=== PATIENT | female | born 1995 | race Caucasian/White ===

== ENCOUNTER 2021-06-18 12:32 | Emergency (ER) | payer OTHER ==
[~2021-06-18] VITALS: Ht 172.7 cm; Wt 126.4 kg
[2021-06-18] MEDS ORDERED: ASPIRIN 325 MG TABLET PO ONE (13:30)
[2021-06-18] MEDS ORDERED: IV NORMAL SALINE 1000ML BAG 1,000 ML IV SCH (13:30)
[2021-06-18] MEDS ORDERED: ACETAMINOPHEN 500 MG TABLET PO ONE (13:30)
--- NOTE | 2021-06-18 13:35 | PHYS DOC ---
Past Medical History Additional Past Medical Histor: history of syncopal episodes since childhood (EDGAR DUTTA NIGHT COORDINATOR) Past Surgical History: No Surgical History (EDGAR DUTTA NIGHT COORDINATOR) Smoking Status: Never Smoker Alcohol Use: Occasionally Social History Narrative: occasionally I do THC (EDGAR DUTTA NIGHT COORDINATOR) General Adult EDM: Chief Complaint: FLU SYMPTOM HPI: HPI: Patient is a 26 year old Female who presents with states since yesterday she is been having syncopal episodes which is not unusual for her as she has pots disease and she lays down and puts her feet up for a while and it usually gets better. She states that she does not feel like it is getting better. She also started with bilateral leg pain that starts at the back of her legs and radiates down, fever and chest pain especially with taking a deep breath that all started yesterday. She states the pain is sharp. She denies any current injury. She does have a gem cutter which she sees every 6 months and states that she does not take medications for her pots disease. She does take medication for hypothyroidism. She is not vaccinated for Covid. She states occasionally she does do CBD and THC and is weaning off breast-feeding. Rates her pain a 7 out of 10 this time. (EDGAR DUTTA NIGHT COORDINATOR) Review of Systems: Review of Systems: Constitutional: + fever or +chills. [] Eyes: Denies change in visual acuity. [] HENT: Denies nasal congestion or sore throat. [] Respiratory: Denies cough or shortness of breath. [] Cardiovascular: + chest pain or edema. [] GI: Denies abdominal pain, nausea, vomiting, bloody stools or diarrhea. [] : Denies dysuria. [] Musculoskeletal: Denies back pain or joint pain. + Bilateral lower leg pain [] Integument: Denies rash. [] Neurologic: Denies headache, focal weakness or sensory changes. [] Endocrine: Denies polyuria or polydipsia. [] Lymphatic: Denies swollen glands. [] Psychiatric: Denies depression or anxiety. [] (EDGAR DUTTA NIGHT COORDINATOR) Heart Score: C/O Chest Pain: Yes HEART Score for Chest Pain: HEART Score for Chest Pain Response (Comments) Value History Slighlty/Non-Suspicious 0 ECG Normal 0 Age < 45 0 Risk Factors 1 or 2 Risk Factors 1 Troponin < Normal Limit 0 Total 1 Risk Factors: Risk Factors: DM, Current or recent (<one month) smoker, HTN, HLP, family history of CAD, obesity. Risk Scores: Score 0 - 3: 2.5% MACE over next 6 weeks - Discharge Home Score 4 - 6: 20.3% MACE over next 6 weeks - Admit for Clinical Observation Score 7 - 10: 72.7% MACE over next 6 weeks - Early Invasive Strategies (EDGAR DUTTA APRN) Current Medications: Current Medications Medications (Trade) Dose Ordered Sig/Danielle Start Time Stop Time Status Last Admin Dose Admin Acetaminophen (Tylenol) 1,000 mg 1X ONCE 06/18/21 13:30 06/18/21 13:31 Aspirin (Srikanth Aspirin) 325 mg 1X ONCE 06/18/21 13:30 06/18/21 13:31 Sodium Chloride 1,000 ml @ 1,000 mls/hr Q1H 06/18/21 13:30 06/18/21 14:29 (EDGAR DUTTA APRN) Allergies: Allergies: Allergies Coded Allergies Type Severity Reaction Last Updated Verified cinnamon Allergy Intermediate Unknown 06/18/21 Yes escitalopram Allergy Intermediate Unknown 06/18/21 Yes (EDGAR DUTTA APRN) Physical Exam: PE: Constitutional: Well developed, well nourished, no acute distress, non-toxic appearance. Febrile [] HENT: Normocephalic, atraumatic, bilateral external ears normal, oropharynx m oist, no oral exudates, nose normal. [] Eyes: PERRLA, EOMI, conjunctiva normal, no discharge. [] Neck: Normal range of motion, no tenderness, supple, no stridor. [] Cardiovascular:Heart rate regular rhythm, no murmur [] Lungs & Thorax: Bilateral breath sounds clear to auscultation [] Abdomen: Bowel sounds normal, soft, no tenderness, no masses, no pulsatile masses. [] Skin: Warm, dry, no erythema, no rash. [] Back: No tenderness, no CVA tenderness. [] Extremities: No tenderness, no cyanosis, no clubbing, ROM intact, no edema. [] Neurologic: Alert and oriented X 3, normal motor function, normal sensory function, no focal deficits noted. [] Psychologic: Affect normal, judgement normal, mood normal. [] (EDGAR DUTTA APRN) Current Patient Data: Vital Signs: Vital Signs Date Time Temp Pulse Resp B/P (MAP) Pulse Ox O2 Delivery O2 Flow Rate FiO2 06/18/21 12:57 100.0 111 20 133/94 (107) 96 Room Air 100.0 (EDGAR DUTTA APRN) EKG: EK and read by Dr. Go as sinus rhythm and no STEMI (EDGAR DUTTA APRN) Radiology/Procedures: Radiology/Procedures: [] Impression: [facility] [address] [place] [address] IMAGING REPORT Signed PATIENT: RANDA RANGEL ACCOUNT: [id number] : 1995 LOCATION: ER AGE: 26 SEX: F EXAM STATUS: REG ER ORD. PHYSICIAN: EDGAR DUTTA APRN REASON: chest pain PROCEDURE: PORTABLE CHEST 1V XR CHEST 1V History: Chest pain Comparison: None. Technique: Portable AP radiograph of the chest. Findings: The lungs are hypoinflated. Mild bibasilar opacities likely atelectasis. Crowding of pulmonary vasculature. No pleural effusion or pneumothorax. Cardiomediastinal silhouette is within normal limits. Osseous structures and soft tissues are unremarkable. Impression: 1. Hypoinflation with bibasilar opacities likely representing atelectasis and crowding of the pulmonary vasculature. Electronically signed by: Ivan Holman MD (06/18/2021 2:37 PM) [facility] DICTATED and SIGNED BY: IVAN HOLMAN MD DATE: 06/18/[id number] [facility] [address] [place], [place] [id number] IMAGING REPORT Signed PATIENT: RANDA RANGEL ACCOUNT: [id number] : 1995 LOCATION: ER AGE: 26 SEX: F EXAM STATUS: REG ER ORD. PHYSICIAN: EDGAR DUTTA APRN REASON: Chest pain with taking a breath PROCEDURE: CT ANGIOGRAPHY CHEST Examination: CT angiography chest with IV contrast HISTORY: History of chest pain while taking of breath COMPARISON: None TECHNIQUE: Axial CT angiographic images of chest were performed with IV contrast. Coronal and sagittal 3-D MIP reformats are performed Exposure: One or more of the following individualized dose reduction techniques were utilized for this examination: 1. Automated exposure control 2. Adjustment of the mA and/or kV according to patient size 3. Use of iterative reconstruction technique FINDINGS: The visualized thyroid gland grossly appears unremarkable. Central airways are patent. The caliber of the aorta grossly appears unremarkable. There is no evidence of filling defect identified in the main pulmonary arterial trunk and right and left main pulmonary arteries and the visualized lobar, segmental branches of the pulmonary arteries. Mild bibasilar lung atelectasis. 5 mm nodule left lower lobe of the lung. 3 mm nodule right lower lobe of the lung. The liver, spleen, adrenals grossly appears unremarkable. No evidence of lytic bony destructive lesion. IMPRESSION: 1. No evidence of pulmonary embolism. 2. Mild bibasilar lung atelectasis or infiltrates. 3. 5 mm nodule left lower lobe of the lung and 3 mm nodule right lower lobe of the lung. Per Fleischner Society guidelines for incidentally found solid nodules measuring less than 6 mm, no follow-up is necessary if patient is considered at low risk for lung cancer. If patient is considered to be at high risk, such as with history of smoking, then CT follow-up in about 12 months can be considered. Electronically signed by: Dada Martinez MD (06/18/2021 3:21 PM) [id number] DICTATED and SIGNED BY: DADA MARTINEZ MD DATE: 06/18/[id number] [facility] [address] [place], [place] [id number] IMAGING REPORT Signed PATIENT: RANDA RANGEL ACCOUNT: [id number] : 1995 LOCATION: ER AGE: 26 SEX: F EXAM STATUS: REG ER ORD. PHYSICIAN: EDGAR DUTTA APRN REASON: pain with taking a breath PROCEDURE: CT HEAD AND CERVICAL SPINE WO CT HEAD AND C-SPINE WO Date: 06/18/2021 2:34 PM Clinical Indication: pain Comparison: None. Technique: 5 mm axial tomographic images were obtained of the head without contrast. These were viewed on brain and bone windows. CT imaging of the cervical spine was performed without contrast. Coronal and sagittal reformatted images were performed. One or more of the following dose reduction techniques were utilized: Automated exposure control (AEC), Adjustment of mA and/or kV according to patient size, Use of iterative reconstruction technique such as ASiR, CT scan done according to ALARA and image gently/image wisely HEAD FINDINGS: The brain parenchyma is normal in attenuation. No intra- or extra-axial mass or fluid collection. No acute hemorrhage. The ventricles are normal in size, shape, and morphology. The soares-white matter junction is normal. The basilar cisterns are patent. The visualized paranasal sinuses are normal. The visualized portions of the orbits and globes are normal. The mastoid air cells are clear. No aggressive osseous lesion or fracture. CERVICAL SPINE FINDINGS: The cervical spine is normally aligned. No acute fracture. No aggressive lytic or blastic osseous lesion. The intervertebral disc heights are maintained. No high-grade spinal canal stenosis or neural foraminal narrowing. The thyroid gland is normal. No cervical lymphadenopathy. The visualized aerodigestive tract is unremarkable. The visualized lung apices are clear. IMPRESSION: 1. No acute intracranial process. 2. No acute osseous abnormality of the cervical spine. Electronically signed by: Jd Smiley MD (06/18/2021 3:13 PM) [id number] DICTATED and SIGNED BY: JD SMILEY MD DATE: 06/18/21 [id number] (EDGAR DUTTA APRN) Course & Med Decision Making: Course & Med Decision Making Pertinent Labs and Imaging studies reviewed. (See chart for details) COVID-19 CRITERIA: The patient was evaluated during the global COVID-19 pandemic, and that diagnosis was suspected/considered upon their initial presentation. Their evaluation, treatment and testing was consistent with current guidelines for patients who present with complaints or symptoms that may be related to COVID-19. See HPI. Alert and oriented x4. Ambulatory steady gait. Skin pink warm and dry. Abdomen soft and nontender. She is febrile. She has not taken any ibuprofen since yesterday. Tearful. Denies any palpitations at this time. She states she feels a pressure type pain in the right breast area and at times sharp. She states it hurts more with breathing. Positive COVID-19. Discharged home. Patient was walked and she did not pass out. She is not hypoxic. Patient is stable and discharged home. [] (EDGAR DUTTA APRN) Course & Med Decision Making I was not involved in the care of this patient while she was in the emergency department. I reviewed the documentation by the WILI as above. In addition: pt was covid positive, accounting for her fever, which has likely contributed to her syncopal episodes given her underlying condition of POTS. (ALE GO MD) Dragon Disclaimer: Dragon Disclaimer: This electronic medical record was generated, in whole or in part, using a voice recognition dictation system. (EDGAR DUTTA APRN) COVID-19 Patient Risks: Age 65 or older: No Sign of co-morbidity: Yes Exp to person + for COVID: No Exp to PUI: No Travel from affected area: No Lower respiratory symptoms: Yes Fever: Yes Other: Yes (bodyaches) (EDGAR DUTTA APRN) PPE Use: Full PPE with N95 mask or PAPR: Yes (EDGAR DUTTA APRN) Departure Departure Impression: Primary Impression: COVID-19 Disposition: 01 HOME / SELF CARE / HOMELESS Condition: STABLE Referrals: KISHA HILLMAN MD (PCP) Patient Instructions: Cough, Adult, Fever Additional Instructions: Take Tylenol and ibuprofen by alternating them every 4 hours. Drink plenty of fluids. Quarantine for the next 10 days. If you begin having severe shortness of breath, cannot keep down fluids or severe chest pain return to the emergency room. You have been tested for or diagnosed with COVID-19. It is an infection caused by a new type of coronavirus. COVID-19 will cause cold-like or mild flu symptoms in most. It can cause more severe symptoms like problems breathing in some. There is no treatment for COVID-19. The body will clear the infection over time. Self-care will help to ease discomfort. Steps to Take: Self-Care Rest as needed. Healthy habits may help you feel better. Steps include: Choose healthy foods including fruits and vegetables. Drink water throughout the day. Get plenty of sleep each night. If you smoke, try to quit. It may ease breathing. Avoid alcohol. Keep Others Healthy The virus can spread to others. Droplets are released every time you sneeze or cough. The droplets can get into the mouth, nose, or eyes of people near you and lead to infection. To lower the chances of spreading COVID-19 to others: Stay at home until your doctor has said it is safe to leave. If you tested positive this will mean staying isolated until both of the following are true: At least 7 days have passed since the start of illness. You are free of fever for at least 72 hours without the use of medicine. During this time: - Avoid public areas, events, or transportation. Do not return to work or school until your doctor has said it is safe to do so. - Call ahead if you need to go to a medical center. Let them know you may have COVID-19. It will help them guide you where to go. They may also ask you to wear a facemask when you come to the office. - If you call for emergency medical services, let them know you may have COVID- 19. While at home: - Try to avoid close contact with others. Stay about 6 feet away. - If possible, spend most of your time in a separate room from others. - Use a face mask if you will be in close contact with others such as sharing a room or vehicle. - Have someone wipe down common surfaces in the home. Use household icu registered nurse every day on areas like doorknobs, counters, or sinks. - Cough or sneeze into a tissue. Throw the tissue away right after use. If a tissue is not available, cough or sneeze into your elbow. - Wash your hands often. Wash them after sneezing or coughing. Use soap and water and wash for at least 20 seconds. Alcohol based hand sanitation truck cleaner can be used if soap and water is not available. - Do not prepare food for others. Avoid sharing personal items like forks, spoons, or toothbrushes. - Avoid close contact with pets while you are sick. There is no evidence of the virus passing to pets. This is a safety step until more is known about this virus. Isolation can be frustrating. Social interaction can help. Keep in touch with friends and family through phone and tech options. You can still interact with others in your home, just keep a safe distance of about 6 feet. Follow-up: Your doctors office will check in with you to see if there are any changes in your health. You may be asked to keep track of symptoms to share with them. They will also let you know when you are clear to be in public again. Problems to Look Out For: Contact your doctor if your recovery is not going as you expect. Get emergency care if you have problems such as: - Trouble breathing - Nonstop chest pain or pressure - Changes in awareness, confusion, or problems waking - Lips or face have bluish color - Worsening of symptoms If you think you have an emergency, call for emergency medical services right away. As taken from [facility] Albuterol Sulfate (PROAIR HFA INHALER) 8.5 Gm Hfa.aer.ad 1 PUFF INH PRN Q6HRS PRN for SHORTNESS OF BREATH, #1 EACH 0 Refills Prov: EDGAR DUTTA APRN 06/18/21 EDGAR DUTTA APRN Jun 18, 2021 13:35 ALE GO MD Jun 18, 2021 19:06
[2021-06-18 14:02] LABS: BILIRUBIN,URINE NEGATIVE (NEG); CLARITY,URINE CLEAR; COLOR,URINE YELLOW; NITRITE,URINE NEGATIVE (NEG); PROTEIN,URINE NEGATIVE (NEG-TRACE); UROBILINOGEN,URINE 0.2 mg/dL (0.2 mg/dL)
[2021-06-18 14:16] LABS: BACTERIA,URINE FEW /HPF (0-FEW); RBC,URINE OCC /HPF (0-2); WBC,URINE 0 /HPF (0-4)
[2021-06-18 14:18] LABS: BASO % 0 % (0-3); EOS # 0.1 x10^3/uL (0.0-0.7); EOS % 1 % (0-3); HEMOGLOBIN 12.8 g/dL (12.0-15.5); LYMPH # 0.5 x10^3/uL (1.0-4.8); LYMPH % 9 % (24-48); MEAN CORPUSCULAR HEMOGLOBIN 27 pg (25-35); MEAN CORPUSCULAR HGB CONC 32 g/dL (31-37); MEAN CORPUSCULAR VOLUME 83 fL (79-100); MONO # 0.6 x10^3/uL (0.0-1.1); MONO % 10 % (0-9); NEUT # 4.2 x10^3/uL (1.8-7.7); NEUT % 80 % (31-73); PLATELET COUNT 228 x10^3/uL (140-400); RED BLOOD COUNT 4.81 x10^6/uL (3.50-5.40); RED CELL DISTRIBUTION WIDTH 14.4 % (11.5-14.5); WHITE BLOOD COUNT 5.3 x10^3/uL (4.0-11.0)
[2021-06-18 14:21] LABS: CALCIUM 8.4 mg/dL (8.5-10.1); CREATININE 0.8 mg/dL (0.6-1.0); GFR 85.4; POTASSIUM 4.1 mmol/L (3.5-5.1)
[2021-06-18] MEDS ORDERED: IOHEXOL 350 MG/ML 100 ML VIAL. IV ONE (14:30)
[2021-06-18] MEDS ORDERED: CONTRAST GIVEN. MC PRN (14:30)
[2021-06-18 14:32] LABS: BARBITURATES NEG (NEG); BENZODIAZEPINES NEG (NEG); CANNABINOIDS POS (NEG); COCAINE NEG (NEG); METHADONE NEG (NEG); OPIATES NEG (NEG); PHENCYCLIDINE NEG (NEG)
[2021-06-18 14:32] LABS: ALBUMIN 3.9 g/dL (3.4-5.0); ALBUMIN/GLOBULIN RATIO 1.1 (1.0-1.7); MAGNESIUM 1.9 mg/dL (1.8-2.4); TOTAL BILIRUBIN 0.2 mg/dL (0.2-1.0); TOTAL PROTEIN 7.6 g/dL (6.4-8.2)
--- NOTE | 2021-06-18 14:39 | RAD ---
XR CHEST 1V History: Chest pain Comparison: None. Technique: Portable AP radiograph of the chest. Findings: The lungs are hypoinflated. Mild bibasilar opacities likely atelectasis. Crowding of pulmonary vascul ature. No pleural effusion or pneumothorax. Cardiomediastinal silhouette is within normal limits. Oss eous structures and soft tissues are unremarkable. Impression: 1. Hypoinflation with bibasilar opacities likely representing atelectasis and crowding of the pulmon carol vasculature. Electronically signed by: Ivan Huber MD (06/18/2021 2:37 PM) [facility]
--- NOTE | 2021-06-18 15:16 | RAD ---
CT HEAD AND C-SPINE WO Date: 06/18/2021 2:34 PM Clinical Indication: pain Comparison: None. Technique: 5 mm axial tomographic images were obtained of the head without contrast. These were view ed on brain and bone windows. CT imaging of the cervical spine was performed without contrast. Coron al and sagittal reformatted images were performed. One or more of the following dose reduction techni ques were utilized: Automated exposure control (AEC), Adjustment of mA and/or kV according to patient size, Use of iterative reconstruction technique such as ASiR, CT scan done according to ALARA and im age gently/image wisely HEAD FINDINGS: The brain parenchyma is normal in attenuation. No intra- or extra-axial mass or fluid collection. No acute hemorrhage. The ventricles are normal in size, shape, and morphology. The soares-white matter eloisa ction is normal. The basilar cisterns are patent. The visualized paranasal sinuses are normal. The visualized portions of the orbits and globes are no rmal. The mastoid air cells are clear. No aggressive osseous lesion or fracture. CERVICAL SPINE FINDINGS: The cervical spine is normally aligned. No acute fracture. No aggressive lytic or blastic osseous les ion. The intervertebral disc heights are maintained. No high-grade spinal canal stenosis or neural foramin al narrowing. The thyroid gland is normal. No cervical lymphadenopathy. The visualized aerodigestive tract is unrem arkable. The visualized lung apices are clear. IMPRESSION: 1. No acute intracranial process. 2. No acute osseous abnormality of the cervical spine. Electronically signed by: Luther Smiley MD (06/18/2021 3:13 PM) [id number]
[2021-06-18 15:20] LABS: AMPHETAMINE/METHAMPHETAMINE NEG (NEG)
--- NOTE | 2021-06-18 15:23 | RAD ---
Examination: CT angiography chest with IV contrast HISTORY: History of chest pain while taking of breath COMPARISON: None TECHNIQUE: Axial CT angiographic images of chest were performed with IV contrast. Coronal and sagitta l 3-D MIP reformats are performed Exposure: One or more of the following individualized dose reduction techniques were utilized for thi s examination: 1. Automated exposure control 2. Adjustment of the mA and/or kV according to patient size 3. Use of iterative reconstruction technique FINDINGS: The visualized thyroid gland grossly appears unremarkable. Central airways are patent. The caliber of the aorta grossly appears unremarkable. There is no evidence of filling defect identified in the stephanie n pulmonary arterial trunk and right and left main pulmonary arteries and the visualized lobar, segme ntal branches of the pulmonary arteries. Mild bibasilar lung atelectasis. 5 mm nodule left lower lobe of the lung. 3 mm nodule right lower lobe of the lung. The liver, spleen, adrenals grossly appears u nremarkable. No evidence of lytic bony destructive lesion. IMPRESSION: 1. No evidence of pulmonary embolism. 2. Mild bibasilar lung atelectasis or infiltrates. 3. 5 mm nodule left lower lobe of the lung and 3 mm nodule right lower lobe of the lung. Per Fleisch ner Society guidelines for incidentally found solid nodules measuring less than 6 mm, no follow-up is necessary if patient is considered at low risk for lung cancer. If patient is considered to be at hi gh risk, such as with history of smoking, then CT follow-up in about 12 months can be considered. Electronically signed by: Dada Martinez MD (06/18/2021 3:21 PM) [id number]
[2021-06-18 15:26] VITALS: BP 114/56
[2021-06-18] MEDS ORDERED: fentaNYL PF VIAL 100 MCG/2 ML VIAL IVP ONE (15:30)
[2021-06-18] MEDS ORDERED: ALBU2.5V8 INH (15:40)
--- NOTE | 2021-06-19 11:37 | EKG ---
[facility] [address] [place] [address] Test Date: 2021-06-18 Test Time: 13:25:35 Pat Name: RANDA RANGEL Department: Room: Gender: F Mail Distributor: : 1995 Requested By: EDGAR DUTTA Order Number: [id number] Reading MD: Finesse Duke Measurements Intervals [place] Rate: 97 P: 236 MS: 136 QRS: 22 QRSD: 76 T: 25 QT: 312 QTc: 400 Interpretive Statements SINUS RHYTHM NORMAL ECG RI6.02 No previous ECG available for comparison Electronically Signed On 06-20-2021 8:19:46 [facility] by Finesse Duke
== END 2021-06-18 16:09 | disposition home or self-care (01) ==
LOC: ER 12:32
DX: U07.1 COVID-19 (principal); Z88.8 Allergy status to other drugs, medicaments and biological substances
CPT/HCPCS: 36415; 70450; 71045; 71275; 72125; 80053; 80307; 81001; 83605; 83690; 83735; 83880; 84443; 84484; 85025; 87426; 93005; 96361; 96374; 99285; J3010; J7030; Q9967